=== PATIENT | male | born 1965 | race Two or more races ===

== ENCOUNTER 2017-02-11 16:44 | Emergency (ER) | payer MEDICAID ==
[~2017-02-11] VITALS: Ht 172.7 cm; Wt 97.5 kg
[2017-02-11 20:16] VITALS: BP 128/91
[2017-02-11] MEDS ORDERED: HYDROcodone-ACET 10/325MG TAB PO ONE (23:15)
== END 2017-02-11 23:38 | disposition home or self-care (01) ==
LOC: ER 16:49
DX: S22.32XA Fracture of one rib, left side, initial encounter for closed fracture (principal); W19.XXXA Unspecified fall, initial encounter; Y93.89 Activity, other specified; Y99.8 Other external cause status; Y92.89 Other specified places as the place of occurrence of the external cause
CPT/HCPCS: 71020; 71101; 93005